=== PATIENT | female | born 1980 | race Hispanic/Latino ===

== ENCOUNTER 2019-06-20 06:51 | Emergency (ER) | payer OTHER ==
[2019-06-20 07:31] LABS: APPEARANCE,URINE Clear (CLEAR); BILIRUBIN,URINE Negative (NEGATIVE); COLOR,URINE Yellow (YELLOW); GLUCOSE, URINE (UA) Negative (NEGATIVE); KETONES,URINE Negative (NEGATIVE); LEUKOCYTE ESTERASE ,URINE Negative (NEGATIVE); NITRATE,URINE Negative (NEGATIVE); OCCULT BLOOD,URINE Moderate (NEGATIVE); PROTEIN,URINE Negative (NEGATIVE)
[2019-06-20 07:33] LABS: HCG,QUAL RESULT POSITIVE (NEGATIVE)
[2019-06-20 07:40] LABS: BASOPHILS % (AUTO) 0.4 % (0.0-5.0); EOSINOPHILS % (AUTO) 1.4 % (0.0-8.0); HEMATOCRIT 40.7 % (36-48); LYMPHOCYTES % (AUTO) 29.1 % (21.0-51.0); MEAN CORPUSCULAR HEMOGLOBIN 30.8 pg (27.0-33.0); MEAN CORPUSCULAR HGB CONC 33.4 g/dL (32.0-36.0); MEAN CORPUSCULAR VOLUME 92.3 fL (79-99); MONOCYTES % (AUTO) 7.5 % (3.0-13.0); NEUTROPHILS % (AUTO) 61.6 % (40.0-77.0); PLATELET COUNT (AUTO) 270 K/uL (130-400); RED BLOOD CELL COUNT(AUTO) 4.41 MIL/uL (4.00-5.50); RED CELL DISTRIBUTION WIDTH 13.8 % (11.0-15.5)
== END 2019-06-20 11:12 | disposition home or self-care (01) ==
LOC: EDH 06:51
DX: O20.0 Threatened abortion (principal); Z79.899 Other long term (current) drug therapy; Z98.890 Other specified postprocedural states; Z3A.01 Less than 8 weeks gestation of pregnancy
CPT/HCPCS: 36415; 76817; 81003; 81025; 84702; 85025; 86900; 86901

== ENCOUNTER 2024-01-06 17:28 | Observation (INO) | payer MEDICAID, OTHER ==
[~2024-01-06] VITALS: Ht 152.4 cm; Wt 80.3 kg
[2024-01-06 18:48] LABS: HEMATOCRIT 39.4 % (36-48); MEAN CORPUSCULAR HEMOGLOBIN 29.5 pg (27.0-33.0); MEAN CORPUSCULAR HGB CONC 33.5 g/dL (32.0-36.0); MEAN CORPUSCULAR VOLUME 88.1 fL (79-99); PLATELET COUNT (AUTO) 237 K/uL (130-400); RED BLOOD CELL COUNT(AUTO) 4.47 MIL/uL (4.00-5.50); WHITE BLOOD COUNT (AUTO) 8.4 K/uL (4.8-10.8)
[2024-01-06 19:08] LABS: ALBUMIN 3.9 g/dL (3.5-5.0); BILIRUBIN,TOTAL 0.4 mg/dL (0.2-1.0); CREATININE 0.8 mg/dL (0.5-1.5); POTASSIUM 3.3 mmol/L (3.5-5.1); TOTAL PROTEIN, SERUM 7.7 g/dL (6.0-8.3)
[2024-01-06 19:17] LABS: BASOPHILS # (AUTO) 0.02 K/uL (0.00-0.20); BASOPHILS % (AUTO) 0.2 % (0.0-5.0); EOSINOPHILS # (AUTO) 0.01 K/uL (0.00-0.70); EOSINOPHILS % (AUTO) 0.1 % (0.0-8.0); IMMATURE GRANULOCYTE ABSOLUTE 0.04 K/uL (0-1); LYMPHOCYTES % (AUTO) 12.5 % (21.0-51.0); MONOCYTES # (AUTO) 0.6 K/uL (0.1-1.0); MONOCYTES % (AUTO) 6.9 % (3.0-13.0); NEUTROPHILS # (AUTO) 6.5 K/uL (1.8-7.7); NEUTROPHILS % (AUTO) 79.8 % (40.0-77.0)
[2024-01-06 20:03] LABS: INR 0.96 (0.85-1.15); PROTHROMBIN TIME 11.2 SEC (9.6-11.6)
[2024-01-06 20:05] LABS: PARTIAL THROMBOPLASTIN TIME 34.6 SEC (26.3-35.5)
[2024-01-06] MEDS: ONDANSETRON 4MG INJ IVP ONE (20:24)
[2024-01-06] MEDS: 0.9%NACL 1000ML 1,000 ML IV ONE (20:24)
[2024-01-06] MEDS: MORPHINE 2 MG SYG IM ONE (20:25)
[2024-01-06] MEDS: KCL 20 MEQ ERTAB PO ONE (20:25)
[2024-01-07] MEDS: LACTATED RINGERS 1000ML 1,000 ML IV SCH (02:10)
[2024-01-07 02:48] VITALS: O2SAT 95
[2024-01-07 02:50] VITALS: BP 115/68; PULSE 99; RESP 16
[2024-01-07 04:28] LABS: BASOPHILS # (AUTO) 0.01 K/uL (0.00-0.20); BASOPHILS % (AUTO) 0.1 % (0.0-5.0); EOSINOPHILS # (AUTO) 0.01 K/uL (0.00-0.70); EOSINOPHILS % (AUTO) 0.1 % (0.0-8.0); HEMATOCRIT 33.9 % (36-48); IMMATURE GRANULOCYTE ABSOLUTE 0.03 K/uL (0-1); LYMPHOCYTES # (AUTO) 1.6 K/uL (1.0-4.8); LYMPHOCYTES % (AUTO) 18.5 % (21.0-51.0); MEAN CORPUSCULAR HEMOGLOBIN 29.3 pg (27.0-33.0); MEAN CORPUSCULAR HGB CONC 32.2 g/dL (32.0-36.0); MEAN CORPUSCULAR VOLUME 91.1 fL (79-99); MONOCYTES # (AUTO) 0.6 K/uL (0.1-1.0); MONOCYTES % (AUTO) 7.5 % (3.0-13.0); NEUTROPHILS # (AUTO) 6.3 K/uL (1.8-7.7); NEUTROPHILS % (AUTO) 73.4 % (40.0-77.0); PLATELET COUNT (AUTO) 220 K/uL (130-400); RED BLOOD CELL COUNT(AUTO) 3.72 MIL/uL (4.00-5.50); RED CELL DISTRIBUTION WIDTH 14.2 % (11.0-15.5); WHITE BLOOD COUNT (AUTO) 8.5 K/uL (4.8-10.8)
[2024-01-07 07:32] VITALS: BP 111/64; PULSE 95; RESP 18
[2024-01-07] MEDS ORDERED: FENTANYL CITRATE PF 50 MCG/1 ML 2ML VIAL ONE (12:30)
[2024-01-07] MEDS: CEFAZOLIN SODIUM 2 GM VIAL IVPB ONE (12:30)
[2024-01-07] MEDS: CEFAZOLIN SODIUM 2 GM VIAL ONE (12:30)
[2024-01-07] MEDS ORDERED: PROPOFOL 10 MG/ML 20ML VIAL IV ONE (12:30)
[2024-01-07] MEDS ORDERED: MIDAZOLAM HCL 1 MG/ML 2ML VIAL ONE (12:30)
[2024-01-07] MEDS ORDERED: LIDOCAINE HCL-MPF 2% 5ML VIAL ONE (12:30)
[2024-01-07] MEDS ORDERED: CEFAZOLIN SODIUM 2 GM VIAL IVPB SCH (12:30)
[2024-01-07] MEDS ORDERED: OXYTOCIN 10 USP UNITS/ML IV SCH (12:50)
== END 2024-01-07 15:10 | disposition home or self-care (01) ==
LOC: EDH 17:28 → INTOOBSV 17:29 → EDHIP 17:29 → WSH 01-07 02:46
PROVIDERS: ADMIT Obstetrics & Gynecology; ATTEND Obstetrics & Gynecology
DX: O03.4 Incomplete spontaneous abortion without complication (principal); E78.00 Pure hypercholesterolemia, unspecified; Z3A.01 Less than 8 weeks gestation of pregnancy
CPT/HCPCS: 59812; 96374; 96372; 99284; 80053; 84702; 85025 ×2; 85610; 85730; 86850; 86900; 86901; 86156; 86870; 36415 ×2; 76801; 88305; J2270; J2405; G0378 ×12; J7030; A4351; J3010; J2250; J3490 ×2; J0690 ×2; A4649; J2704